=== PATIENT | male | born 1940 | race Caucasian/White ===

== ENCOUNTER 2020-10-03 11:51 | Inpatient (IN) | payer MEDICARE ==
[2020-10-03 12:47] LABS: ALT (SGPT) 31 U/L (8-55); AST (SGOT) 30 U/L (5-34); Albumin 3.8 g/dL (3.4-4.8); Alkaline Phosphatase 138 U/L (40-110); Anion Gap 23 mmol/L (10-20); BUN (Urea Nitrogen) 51 mg/dL (8.4-25.7); Bilirubin, Total 2.8 mg/dL (0.2-1.2); Calc. Creatinine Clearance 0 mL/min (70-130); Calcium 9.5 mg/dL (7.8-10.44); Carbon Dioxide 18 mmol/L (23-31); Chloride 95 mmol/L (98-107); Globulin 2.3 g/dL (2.4-3.5); Glucose 194 mg/dL (83-110); Potassium 4.5 mmol/L (3.5-5.1); Protein, Total 6.1 g/dL (5.8-8.1); Sodium 131 mmol/L (136-145)
[2020-10-03 12:49] LABS: #Basophils 0.1 10x3/uL (0.0-0.2); #Monocytes 0.9 10x3/uL (0.0-1.1); #Neutrophils 18.4 10x3/uL (1.5-8.4); %Basophils 0.2 % (0.0-2.0); %Eosinophils 0.1 % (0.0-6.0); %Lymphocytes 4.3 % (18.0-47.0); %Monocytes 4.3 % (0.0-10.0); %Neutrophils 89.3 % (40.0-75.0); Hemoglobin 12.8 g/dL (13.5-17.5); Mean Corpuscular Hemoglobin 31.7 pg (27.0-33.0); Mean Corpuscular Volume 93.3 fl (81.2-95.1); Platelet Count 185 10x3/uL (150-450); RBC Distribution Width 14.4 % (11.5-14.5); Red Blood Cell (RBC) Count 4.04 10x6/uL (4.32-5.72); White Blood Cell (WBC) Count 20.6 10x3/uL (3.5-10.5)
[2020-10-03 13:09] LABS: CKMB 2.3 ng/mL (0-6.6)
[2020-10-03] MEDS ORDERED: Cefepime 2 GM VIAL ONE (13:23)
[2020-10-03 14:17] LABS: Acetaminophen Less than 6.0 mcg/mL (10.0-30.0); Alcohol Less than 10 mg/dL (Less than 10); Salicylate Less than 8.0 mg/dL (15.0-30.0)
[2020-10-03] MEDS ORDERED: Ondansetron PF 4 MG/2 ML Vial IVP PRN (15:25)
[2020-10-03] MEDS ORDERED: Acetaminophen 325 MG TAB PO PRN (15:25)
[2020-10-03 15:32] LABS: Actual Bicarbonate (HCO3v) 19 mEq/L (22-28); Base Excess -6.2 mEq/L (-2.0 to +3.0); Calcium, Ionized (venous) 1.12 mmol/L (1.16-1.32); Chloride (VBG) 98 mmol/L (98-106); Hemoglobin (Hb) 13.2 g/dL (12.6-17.4); Potassium (VBG) 4.61 mmol/L (3.70-5.30); Puncture Site Other Site; RapidComm Collect By CBN; Sodium 132.5 mmol/L (133-146); pH (venous) 7.34 (7.32-7.43)
[2020-10-03] MEDS ORDERED: Sodium Chloride 0.9% 500 ML IV SCH (16:00)
[2020-10-03 16:49] LABS: Lactic Acid 2.1 mmol/L (0.5-2.2)
[2020-10-03 16:59] LABS: Troponin I 0.052 ng/mL (< 0.028)
[2020-10-03 19:52] LABS: Lactic Acid 1.8 mmol/L (0.5-2.2)
[2020-10-03 19:54] LABS: Anion Gap 18 mmol/L (10-20); BUN (Urea Nitrogen) 49 mg/dL (8.4-25.7); Calc. Creatinine Clearance 0 mL/min (70-130); Calcium 8.9 mg/dL (7.8-10.44); Carbon Dioxide 21 mmol/L (23-31); Chloride 99 mmol/L (98-107); Glucose 182 mg/dL (83-110); Potassium 3.6 mmol/L (3.5-5.1); Sodium 134 mmol/L (136-145)
[2020-10-03 20:01] LABS: Troponin I 0.042 ng/mL (< 0.028)
[2020-10-03 20:16] LABS: Anion Gap 17 mmol/L (10-20); BUN (Urea Nitrogen) 48 mg/dL (8.4-25.7); Calc. Creatinine Clearance 0 mL/min (70-130); Calcium 8.5 mg/dL (7.8-10.44); Carbon Dioxide 20 mmol/L (23-31); Chloride 100 mmol/L (98-107); Glucose 217 mg/dL (83-110); Potassium 3.8 mmol/L (3.5-5.1); Sodium 133 mmol/L (136-145)
[2020-10-03] MEDS ORDERED: D5 1/2 NS w/20 mEq KCL 1,000 ML ONE (20:33)
[2020-10-03] MEDS ORDERED: Insulin Regular 300 UNITS/3 ML VIAL ONE (20:35)
[2020-10-03] MEDS ORDERED: INSULIN REGULAR IN 0.9 % NACL 100 UNIT/100 ML BAG ONE (20:37)
[2020-10-03] MEDS ORDERED: Dextrose 50% Abboject 50 ML SYRINGE SLOW IVP PRN (23:08)
[2020-10-03] MEDS ORDERED: Sodium Chloride 0.9% 1,000 ML IV PRN ×4 (23:15)
[2020-10-03] MEDS ORDERED: ADD ELECTROLYTE REPLACEMENT SET TO PROFILE FS SCH (23:15)
[2020-10-03] MEDS ORDERED: D5 1/2 NS w/20 mEq KCL 1,000 ML IV PRN (23:15)
[2020-10-03] MEDS ORDERED: Dextrose 5 %-0.45 % NaCl 1,000 ML IV PRN (23:15)
[2020-10-03] MEDS ORDERED: Dextrose 5% in Water 1,000 ML IV PRN (23:15)
[2020-10-03] MEDS ORDERED: Electrolyte Replacement Protocol FS PRN (23:15)
[2020-10-03] MEDS ORDERED: HUMULIN R 100 UNITS in Sodium Chloride 0.9% 100 ML IVPB SCH (23:15)
[2020-10-03] MEDS ORDERED: NS 0.9% w/ 20 MEQ KCL 1,000 ML/1,000 ML BAG IV PRN ×2 (23:15)
[2020-10-03 23:48] LABS: Anion Gap 15 mmol/L (10-20); BUN (Urea Nitrogen) 47 mg/dL (8.4-25.7); Calc. Creatinine Clearance 0 mL/min (70-130); Carbon Dioxide 22 mmol/L (23-31); Chloride 100 mmol/L (98-107); Glucose 160 mg/dL (83-110); Phosphorus 3.5 mg/dL (2.3-4.7); Potassium 3.7 mmol/L (3.5-5.1); Sodium 133 mmol/L (136-145)
[2020-10-03 23:53] LABS: Troponin I 0.041 ng/mL (< 0.028)
[2020-10-04] MEDS ORDERED: HumaLOG 300 UNITS/3 ML VIAL SC SCH (01:15)
[2020-10-04] MEDS ORDERED: Lantus 1000 UNITS/10 ML VIAL SC SCH (01:15)
[2020-10-04] MEDS ORDERED: Lantus 1000 UNITS/10 ML VIAL ONE (01:17)
[2020-10-04] MEDS ORDERED: HumaLOG 300 UNITS/3 ML VIAL ONE (01:17)
[2020-10-04] MEDS ORDERED: D5 1/2 NS w/20 mEq KCL 1,000 ML ONE (02:07)
[2020-10-04] MEDS: 1/2 NS w/KCL 20 mEq 1,000 ML IV SCH ×2 (03:56→15:24)
[2020-10-04 05:54] LABS: #Eosinphils 0.1 10x3/uL (0.0-0.5); #Monocytes 1.1 10x3/uL (0.0-1.1); #Neutrophils 10.9 10x3/uL (1.5-8.4); %Basophils 0.2 % (0.0-2.0); %Eosinophils 0.4 % (0.0-6.0); %Lymphocytes 6.9 % (18.0-47.0); %Monocytes 8.5 % (0.0-10.0); %Neutrophils 82.6 % (40.0-75.0); Hemoglobin 10.7 g/dL (13.5-17.5); Mean Corpuscular HGB CONC 34.1 g/dL (32.0-36.0); Mean Corpuscular Hemoglobin 31.8 pg (27.0-33.0); Mean Corpuscular Volume 93.2 fl (81.2-95.1); Mean Platelet Volume 12.8 fl (7.4-10.4); Platelet Count 149 10x3/uL (150-450); RBC Distribution Width 14.6 % (11.5-14.5); Red Blood Cell (RBC) Count 3.37 10x6/uL (4.32-5.72); White Blood Cell (WBC) Count 13.2 10x3/uL (3.5-10.5)
[2020-10-04 05:58] LABS: ALT (SGPT) 26 U/L (8-55); AST (SGOT) 19 U/L (5-34); Albumin 3.1 g/dL (3.4-4.8); Alkaline Phosphatase 102 U/L (40-110); Anion Gap 17 mmol/L (10-20); BUN (Urea Nitrogen) 46 mg/dL (8.4-25.7); Calc. Creatinine Clearance 41 mL/min (70-130); Calcium 8.9 mg/dL (7.8-10.44); Carbon Dioxide 21 mmol/L (23-31); Cardiac Risk 4.4 (Less than 4.5); Chloride 100 mmol/L (98-107); Cholesterol 118 mg/dl (< 200 Desired); Globulin 1.8 g/dL (2.4-3.5); Glucose 130 mg/dL (83-110); HDL Cholesterol 27 mg/dL (>60 Neg Risk); LDL Cholesterol, Calculated 74 mg/dL; Potassium 3.6 mmol/L (3.5-5.1); Protein, Total 4.9 g/dL (5.8-8.1); Sodium 134 mmol/L (136-145); Triglycerides 85 mg/dL (Less than 150)
[2020-10-04] MEDS: Carvedilol 12.5 MG TAB PO SCH ×3 (06:46→20:07)
[2020-10-04] MEDS: Apixaban 2.5 MG TAB PO SCH ×3 (06:47→20:07)
[2020-10-04] MEDS ORDERED: Cefepime 2 GM in Sodium Chloride 0.9% 100 ML IVPB SCH (07:00)
[2020-10-04] MEDS ORDERED: Vancomycin HCl 1.25 GM in Sodium Chloride 0.9% 250 ML 300 ML IVPB SCH (08:00)
[2020-10-04] MEDS ORDERED: Magnesium 2 GM/50 ML 2 GM in Premix Bag 1 BAG IVPB SCH (08:00)
[2020-10-04] MEDS: Ezetimibe 10 MG TAB PO SCH (10:27)
[2020-10-04 11:34] LABS: Hemoglobin A1c 7.3 % (4.0-6.0)
[2020-10-04 12:43] LABS: Bilirubin Neg (Negative); Blood, Urine Negative (Negative); Clarity Clear (Clear); Glucose, Urine (Dipstick) Normal (Negative); Ketone, Urine Negative (Negative); Leukocyte Negative (Negative); Nitrite Negative (Negative); Protein, Urine (Dipstick) Negative (Neg-Trace); Urobilinogen Normal mg/dL (Less than 2)
[2020-10-04] MEDS ORDERED: VANCOMYCIN 1.25 GM/250 ML BAG 1.25 GM in Premix Bag 1 BAG IVPB SCH (14:00)
[2020-10-04] MEDS ORDERED: VANCOMYCIN 1.25 GM/250 ML BAG IVPB SCH (14:00)
[2020-10-04] MEDS: Cefepime 2 GM in Sodium Chloride 0.9% 100 ML IVPB SCH (14:09)
[2020-10-04 15:45] LABS: Bacteria/HPF None Seen HPF (None Seen); RBC/HPF 0-3 HPF (0-3); Squamous Epithelial 0-3 HPF (0-3); WBC/HPF 0-3 HPF (0-3)
[2020-10-04 15:46] LABS: Urine Culture Reflex No No
[2020-10-04] MEDS ORDERED: Insulin Regular 300 UNITS/3 ML VIAL SC PRN (18:30)
[2020-10-04] MEDS ORDERED: FLU VACC QS2020-21(65YR UP)/PF 240 MCG/0.7 ML SYRINGE IM ONE (21:00)
[2020-10-05] MEDS: Cefepime 2 GM in Sodium Chloride 0.9% 100 ML IVPB SCH ×2 (02:56→12:29)
[2020-10-05] MEDS: 1/2 NS w/KCL 20 mEq 1,000 ML IV SCH (06:41)
[2020-10-05] MEDS: Apixaban 2.5 MG TAB PO SCH ×2 (08:21→21:20)
[2020-10-05] MEDS: Carvedilol 12.5 MG TAB PO SCH ×2 (08:21→21:20)
[2020-10-05] MEDS: Ezetimibe 10 MG TAB PO SCH (08:21)
[2020-10-05] MEDS: Famotidine 20 MG TAB PO SCH (08:21)
[2020-10-05 08:37] LABS: #Eosinphils 0.1 10x3/uL (0.0-0.5); #Monocytes 0.8 10x3/uL (0.0-1.1); #Neutrophils 9.1 10x3/uL (1.5-8.4); %Basophils 0.4 % (0.0-2.0); %Eosinophils 0.4 % (0.0-6.0); %Lymphocytes 10.2 % (18.0-47.0); %Neutrophils 80.8 % (40.0-75.0); Hemoglobin 10.7 g/dL (13.5-17.5); Mean Corpuscular HGB CONC 33.4 g/dL (32.0-36.0); Mean Corpuscular Hemoglobin 31.6 pg (27.0-33.0); Mean Corpuscular Volume 94.4 fl (81.2-95.1); Mean Platelet Volume 12.1 fl (7.4-10.4); Platelet Count 148 10x3/uL (150-450); RBC Distribution Width 14.9 % (11.5-14.5); Red Blood Cell (RBC) Count 3.39 10x6/uL (4.32-5.72); White Blood Cell (WBC) Count 11.3 10x3/uL (3.5-10.5)
[2020-10-05 08:38] LABS: Anion Gap 11 mmol/L (10-20)
[2020-10-05 09:02] LABS: BUN (Urea Nitrogen) 34 mg/dL (8.4-25.7); Calc. Creatinine Clearance 49 mL/min (70-130); Calcium 9.2 mg/dL (7.8-10.44); Carbon Dioxide 21 mmol/L (23-31); Chloride 105 mmol/L (98-107); Glucose 85 mg/dL (83-110); Magnesium 2.2 mg/dL (1.6-2.6); Phosphorus 2.1 mg/dL (2.3-4.7); Sodium 133 mmol/L (136-145)
[2020-10-05] MEDS ORDERED: Sodium Chloride 0.9% 500 ML IV SCH (12:30)
[2020-10-05] MEDS ORDERED: Potassium Phosphate 30 MMOL in Sodium Chloride 0.9% 250 ML 250 ML IVPB SCH (13:30)
[2020-10-05] MEDS ORDERED: Vancomycin HCl 1 GM in Sodium Chloride 0.9% 250 ML 250 ML IVPB SCH (14:00)
[2020-10-05] MEDS: Sodium Chloride 0.9% 1,000 ML IV SCH (14:54)
[2020-10-06] MEDS: Cefepime 2 GM in Sodium Chloride 0.9% 100 ML IVPB SCH (02:11)
[2020-10-06] MEDS: Sodium Chloride 0.9% 1,000 ML IV SCH (02:11)
[2020-10-06 06:40] VITALS: BMI 21.3
[2020-10-06] MEDS: Famotidine 20 MG TAB PO SCH (09:00)
[2020-10-06] MEDS: Apixaban 2.5 MG TAB PO SCH (09:01)
[2020-10-06] MEDS: Ezetimibe 10 MG TAB PO SCH (09:01)
[2020-10-06] MEDS: Carvedilol 12.5 MG TAB PO SCH (09:01)
[2020-10-06 12:28] VITALS: BP 113/60; TEMP 98
[2020-10-06 14:01] LABS: Vancomycin, Trough 8.6 ug/mL
== END 2020-10-06 14:50 | disposition home health service (06) | DRG 640 ==
LOC: CSHERS 11:51 → CSHTELE 10-04 02:56
PROVIDERS: ADMIT Internal Medicine; ATTEND Hospitalist
DX: E86.0 Dehydration (principal); E11.10 Type 2 diabetes mellitus with ketoacidosis without coma; I48.20 Chronic atrial fibrillation, unspecified; N17.9 Acute kidney failure, unspecified; I13.0 Hypertensive heart and chronic kidney disease with heart failure and stage 1 through stage 4 chronic kidney disease, or unspecified chronic kidney disease; I95.1 Orthostatic hypotension; E87.1 Hypo-osmolality and hyponatremia; E87.2 Acidosis; E78.5 Hyperlipidemia, unspecified; R77.8 Other specified abnormalities of plasma proteins; F03.90 Unspecified dementia, unspecified severity, without behavioral disturbance, psychotic disturbance, mood disturbance, and anxiety; E11.22 Type 2 diabetes mellitus with diabetic chronic kidney disease; N18.9 Chronic kidney disease, unspecified; I50.9 Heart failure, unspecified; Z79.899 Other long term (current) drug therapy; Z95.810 Presence of automatic (implantable) cardiac defibrillator; Z91.81 History of falling; Z79.01 Long term (current) use of anticoagulants; T38.0X5A Adverse effect of glucocorticoids and synthetic analogues, initial encounter; D72.829 Elevated white blood cell count, unspecified; I08.0 Rheumatic disorders of both mitral and aortic valves; E86.1 Hypovolemia; Z79.84 Long term (current) use of oral hypoglycemic drugs
CPT/HCPCS: 36415; 36416; 71045; 80048; 80053; 80061; 80202; 80307; 82010; 82553; 82805; 83036; 83605; 83735; 84100; 84145; 84484; 85025; 87040; 93005; 93010; 93306; 94760; 96365; J0692; J1815; J1956; J3370; J3475; J3480; J3490; J7050